=== PATIENT | female | born 1985 | race Caucasian/White ===

== ENCOUNTER 2017-09-15 18:15 | Emergency (ER) | payer MEDICAID ==
[~2017-09-15] VITALS: Ht 170.2 cm; Wt 64.6 kg
[2017-09-15] MEDS ORDERED: HYDROcodone/APAP 5/325 TABLET ONE (19:15)
[2017-09-15] MEDS ORDERED: LIDOCAINE 1%, 10ML INFIL ONE (19:30)
[2017-09-15] MEDS ORDERED: HYDROcodone/APAP 5/325 TABLET PO ONE (19:30)
[2017-09-15] MEDS ORDERED: LIDOCAINE-MPF 1%, 5ML ONE (20:26)
[2017-09-15] MEDS ORDERED: DIPH,PERTUSS(ACELL),TET VAC/PF 0.5 ML IM-VACC ONE ×2 (20:43→21:00)
[2017-09-15] MEDS ORDERED: BACITRACIN ZINC OINT 500U/GM, 0.9 GM ONE (21:17)
[2017-09-15 21:47] VITALS: BP 121/74
== END 2017-09-15 21:49 | disposition home or self-care (01) ==
LOC: ED 21:30
DX: S29.012A Strain of muscle and tendon of back wall of thorax, initial encounter (principal); S91.202A Unspecified open wound of left great toe with damage to nail, initial encounter; S91.201A Unspecified open wound of right great toe with damage to nail, initial encounter; W22.8XXA Striking against or struck by other objects, initial encounter; Y93.89 Activity, other specified; Y92.098 Other place in other non-institutional residence as the place of occurrence of the external cause; Y99.8 Other external cause status
CPT/HCPCS: 11730; 72072; 90715; 96372; 99284

== ENCOUNTER 2017-09-25 13:54 | Emergency (ER) | payer MEDICAID ==
[~2017-09-25] VITALS: Ht 170.2 cm; Wt 66.7 kg
[2017-09-25 13:55] VITALS: BP 108/70
== END 2017-09-25 15:30 | disposition home or self-care (01) ==
LOC: ED 15:25
DX: S91.114D Laceration without foreign body of right lesser toe(s) without damage to nail, subsequent encounter (principal)
CPT/HCPCS: 99281

== ENCOUNTER 2020-12-20 09:54 | Emergency (ER) | payer BC, MEDICAID, OTHER ==
[~2020-12-20] VITALS: Ht 170.2 cm; Wt 76.3 kg
[2020-12-20 10:25] VITALS: BP 115/59
[2020-12-20] MEDS ORDERED: LIDOCAINE-MPF 1%, 5ML INFIL ONE (11:00)
[2020-12-20] MEDS ORDERED: HYDROcodone/APAP 5/325 TABLET ONE (11:00)
[2020-12-20] MEDS ORDERED: LIDOCAINE-MPF 1%, 5ML ONE (11:00)
[2020-12-20] MEDS ORDERED: HYDROcodone/APAP 5/325 TABLET PO ONE (11:00)
--- NOTE | 2020-12-20 11:37 | NUR ---
NATE BARR AT BEDSIDE FOR I&D
--- NOTE | 2020-12-20 11:57 | NUR ---
Patient given discharge instructions and they have confirmed that they understand the instructions. Patient ambulatory with steady gait.
== END 2020-12-20 11:59 | disposition home or self-care (01) ==
LOC: ED 11:50
DX: L02.31 Cutaneous abscess of buttock (principal)
CPT/HCPCS: 10060; 99283

== ENCOUNTER 2020-12-22 11:26 | Emergency (ER) | payer OTHER ==
[~2020-12-22] VITALS: Ht 170.2 cm; Wt 76.0 kg
[2020-12-22 11:51] VITALS: BP 108/67
== END 2020-12-22 14:37 | disposition home or self-care (01) ==
LOC: ED 11:29
DX: Z48.01 Encounter for change or removal of surgical wound dressing (principal); F17.210 Nicotine dependence, cigarettes, uncomplicated
CPT/HCPCS: 99282; 99406